=== PATIENT | male | born 1970 | race Caucasian/White ===

== ENCOUNTER 2016-07-21 11:28 | Emergency (ER) | payer OTHER ==
[2016-07-21] MEDS ORDERED: FLUCONAZOLE 150 MG TABLET ONE (13:24)
== END 2016-07-21 13:59 | disposition home or self-care (01) ==
LOC: ED 11:28
DX: L30.4 Erythema intertrigo (principal); B37.49 Other urogenital candidiasis; F17.210 Nicotine dependence, cigarettes, uncomplicated
CPT/HCPCS: 99283 ×2; A9270